=== PATIENT | male | born 1975 | race Caucasian/White ===

== ENCOUNTER 2016-12-28 07:33 | Emergency (ER) | payer OTHER ==
[2016-12-28 07:56] VITALS: BP 155/72; TEMP 96.6; O2SAT 99
--- NOTE | 2016-12-28 08:00 | ED.PDOC ---
History of Present Illness - General Chief Complaint: Eye Problems Stated Complaint: Feels like something is in his L eye Time Seen by Provider: 12/28/16 07:34 Source: patient, RN notes reviewed, Vital Signs reviewed Exam Limitations: no limitations - History of Present Illness Initial Comments: Patient reports he got something in his eye 2 days ago. It is now painful and red and feels like something is in there every time he closes his eye. No photophobia Timing/Duration: gradual Severity: moderate EENT Location: eye (L) Prearrival Treatment: no prearrival treatment Improving Factors: nothing Worsening Factors: other - closing eye Associated Symptoms: denies symptoms Allergies/Adverse Reactions: Allergies NO KNOWN ALLERGY Allergy (Verified 10/01/12 10:34) Review of Systems - Review of Systems Constitutional: States: no symptoms reported EENTM: States: see HPI Respiratory: States: no symptoms reported Cardiology: States: no symptoms reported Musculoskeletal: States: no symptoms reported Skin: States: no symptoms reported Neurological: States: no symptoms reported Past Medical History (General) - Patient Medical History Hx Congestive Heart Failure: No Hx Diabetes: No Family Medical History - Family History Mother Family History: Unknown Physical Exam - Physical Exam General Appearance: Alert, Comfortable, No apparent distress, Well Developed, Well Groomed, Well Hydrated, Well Nourished Eye Exam: right normal, left other - Injected sclera, nothing under eyelid, Corneal abrassion @ ~6:00 Neck: non-tender, full range of motion, supple, normal inspection Neurologic: alert, normal mood/affect, oriented x 3 Skin Exam: normal color, warm/dry Procedures - Eye Procedure Left Alcaine Drops Administered: Yes Antibiotic Oinment/Drps Admin: gentamycin Progress: After anesthesia with Tetracaine. Flurosene dye placed in L eye. Corneal abrasion @~6:00. No foreign body Departure - Departure Clinical Impression: Corneal abrasion Qualifiers: Encounter type: initial encounter Laterality: left Qualifier Code: (S05.02XA) Injury of conjunctiva and corneal abrasion without foreign body, left eye, initial encounter Time of Disposition: 08:02 Disposition: Discharge to Home or Self Care Condition: Good Departure Forms: ED Discharge - Pt. Copy, Patient Portal Self Enrollment Instructions: DI for Corneal Abrasion Diet: resume usual diet Activity: increase activity as tolerated Additional Instructions: Gentamycin 1 drop in L eye 4X/day for 7 days
[2016-12-28] MEDS ORDERED: GENTAMICIN OPTH SOL 0.3% 5ML BOTTLE OPHTH ONE (12:00)
[2016-12-28] MEDS ORDERED: TETRACAINE HCL 0.5% 4 ML BTTL OPHTH ONE (12:00)
== END 2016-12-28 08:06 | disposition home or self-care (01) ==
LOC: ER 07:33
DX: S05.02XA Injury of conjunctiva and corneal abrasion without foreign body, left eye, initial encounter (principal); X58.XXXA Exposure to other specified factors, initial encounter

== ENCOUNTER → 2018-05-26 | Outpatient (CLI) | payer BC | LOC: GMAE 16:53 | PROVIDERS: ATTEND Family Medicine | DX: R06.02 Shortness of breath (principal); J45.30 Mild persistent asthma, uncomplicated ==

== ENCOUNTER 2018-09-08 21:04 | Observation (INO) | payer BC ==
[2018-09-08] MEDS ORDERED: MORPHINE SULFATE INJ 10 MG/ML VIAL ONE (21:10)
[2018-09-08] MEDS ORDERED: ONDANSETRON INJ 4 MG/2 ML VIAL ONE (21:10)
[2018-09-08] MEDS ORDERED: NITROGLYCERIN 0.4 MG 25 EA TAB SL ONE ×2 (21:10→21:17)
[2018-09-08] MEDS ORDERED: ASPIRIN TABLET 325 MG TAB ONE (21:10)
[2018-09-08] MEDS ORDERED: MORPHINE SULFATE INJ 10 MG/ML VIAL IV ONE ×2 (21:17→21:50)
[2018-09-08] MEDS ORDERED: ASPIRIN (ENTERIC COATED) 325 MG TAB PO ONE (21:17)
[2018-09-08] MEDS ORDERED: ONDANSETRON INJ 4 MG/2 ML VIAL IV ONE (21:18)
[2018-09-08] MEDS ORDERED: ALUM & MAG HYDROX-SIMETHICONE 30 ML, LIDOCAINE VISCOUS 2% 15 ML PO ONE ×2 (21:23)
--- NOTE | 2018-09-08 21:30 | ED.PDOC ---
History of Present Illness - General Chief Complaint: Chest Pain/TN Stated Complaint: CP, N/V Time Seen by Provider: 09/08/18 21:15 Source: patient, family Exam Limitations: no limitations - History of Present Illness Initial Comments: ACUTE ONSET OF SEVERE PRESSURE TYPE CHEST PAIN FROM THE EPIGASTRIUM RADIATING TO THE PRECORDIUM, ASSOCIATED WITH NAUSEA AND DIAPHORESIS. HE RATED IT 10/10. THE PAIN COMES IN WAVES HE SAYS IT FEELS IF HE WAS INFLATED WITH AIR. HAS A HX OF CHOLESTEROL. FORMER TOBACCO USER-SMOKELESS. Timing/Duration: 1/2 hour Location: substernal, epigastric Prior Chest Pain/Cardiac Workup: no prior chest pain, no prior cardiac workup Improving Factors: other - FEELS BETTER WHENEVER IS LYING FLAT. Worsening Factors: nothing Nitro Today/Relief: no nitro taken today Aspirin Treatment Today: no aspirin today Associated Symptoms: chest pain, diaphoresis, nausea/vomiting, shortness of breath Allergies/Adverse Reactions: Allergies NO KNOWN ALLERGY Allergy (Verified 09/08/18 21:26) Home Medications: Ambulatory Orders NK 09/08/18 Review of Systems - Review of Systems Constitutional: States: malaise EENTM: States: no symptoms reported Respiratory: States: short of breath Cardiology: States: chest pain Gastrointestinal/Abdominal: States: abdominal pain, nausea, vomiting Genitourinary: States: no symptoms reported Musculoskeletal: States: no symptoms reported Skin: States: no symptoms reported Neurological: States: no symptoms reported Endocrine: States: no symptoms reported Hematologic/Lymphatic: States: no symptoms reported Past Medical History (General) - Patient Medical History Hx Seizures: No Hx Stroke: No Hx Dementia: No Hx Asthma: No Hx of COPD: No Hx Cardiac Disorders: No Hx Congestive Heart Failure: No Hx Pacemaker: No Hx Hypertension: No Hx Thyroid Disease: No Hx Diabetes: No Hx Gastroesophageal Reflux: No Hx Renal Disease: No Hx Cancer: No Hx of HIV: No Hx Hepatitis C: No Hx MRSA: No - Vaccination History Hx Tetanus, Diphtheria Vaccination: No Hx Influenza Vaccination: Yes Family Medical History - Family History Mother Family History: Unknown Physical Exam - Physical Exam General Appearance: Obvious distress, Well Developed, Well Groomed, Well Hydrated, Well Nourished Eyes, Ears, Nose, Throat Exam: PERRL/EOMI Neck: non-tender, full range of motion, supple Respiratory: lungs clear, normal breath sounds, no respiratory distress, no accessory muscle use Cardiovascular/Chest: normal peripheral pulses, regular rate, rhythm, no edema, no gallop, no JVD, no murmur Peripheral Pulses: radial,right: 2+, radial,left: 2+ Gastrointestinal/Abdominal: normal bowel sounds, soft, no organomegaly, tenderness - EPIGASTRIC TENDERNESS Rectal Exam: deferred Extremity: normal range of motion Neurologic: no motor/sensory deficits, normal mood/affect, oriented x 3 Skin Exam: normal color, rash - CLAMMY Lymphatic: no adenopathy Progress - Progress Progress: 09/08/18 23:13 09/08/18 21:30 EKG STAT 09/08/18 23:11 TROPONIN-I Stat Laboratory Results WBC 8.0 K/mm3 (4.8-10.8) 09/08/18 21:19 RBC 5.24 M/mm3 (4.70-6.10) 09/08/18 21:19 Hgb 15.1 gm/dL (14.0-18.0) 09/08/18 21:19 Hct 45.5 % (42.0-52.0) 09/08/18 21:19 MCV 86.9 fl (80.0-94.0) 09/08/18 21: MCH 28.7 pg (27.0-31.0) 09/08/18 21: MCHC 33.1 g/dL (33.0-37.0) 09/08/18 21:19 RDW 13.7 % (11.5-14.5) 09/08/18 21: Plt Count 243 K/mm3 (130-400) 09/08/18 21:19 MPV 9.0 fl (7.40-10.4) 09/08/18 21:19 Absolute Neuts (auto) 4.90 K/uL (1.8-6.8) 09/08/18 21: Absolute Lymphs (auto) 2.30 K/uL (1.0-3.4) 09/08/18 21:19 Absolute Monos (auto) 0.60 K/uL (0.2-0.8) 09/08/18 21:19 Absolute Eos (auto) 0.20 K/uL (0.0-0.4) 09/08/18 21:19 Absolute Basos (auto) 0.00 K/uL (0.0-0.1) 09/08/18 21:19 Neutrophils % 60.8 % (42.0-78.0) 09/08/18 21:19 Lymphocytes % 28.9 % (20.0-50.0) 09/08/18 21:19 Monocytes % 7.5 % (2.0-9.0) 09/08/18 21:19 Eosinophils % 2.4 % (1.0-5.0) 09/08/18 21:19 Basophils % 0.4 % (0.0-2.0) 09/08/18 21:19 PT 9.7 SECONDS (9.0-10.9) 09/08/18 21:19 INR 0.97 (0.9-1.15) 09/08/18 21:19 PTT (SP) 23.2 SECONDS (21.8-31.6) 09/08/18 21:19 D-Dimer, Quantitative 0.28 mg/L FEU (0-0.49) 09/08/18 21:19 Sodium 140 mmol/L (135-145) 09/08/18 21:19 Potassium 3.6 mmol/L (3.6-5.0) 09/08/18 21:19 Chloride 104 mmol/L (101-111) 09/08/18 21:19 Carbon Dioxide 28 mmol/L (21-31) 09/08/18 21:19 Anion Gap 11.6 (12-18) L 09/08/18 21:19 BUN 28 mg/dL (7-18) H 09/08/18 21:19 Creatinine 1.31 mg/dL (0.6-1.3) H 09/08/18 21:19 BUN/Creatinine Ratio 21.4 (10-20) H 09/08/18 21:19 Random Glucose 108 mg/dL (70-105) H 09/08/18 21:19 Serum Osmolality 285.4 mOsm/L (275-295) 09/08/18 21:19 Calcium 9.7 mg/dL (8.4-10.2) 09/08/18 21:19 Total Bilirubin 0.4 mg/dL (0.2-1.0) 09/08/18 21:19 AST 59 IU/L (10-42) H 09/08/18 21:19 ALT 39 IU/L (10-60) 09/08/18 21:19 Alkaline Phosphatase 84 IU/L (42-121) 09/08/18 21:19 Troponin I < 0.02 ng/mL (0.01-0.05) 09/08/18 21:19 Serum Total Protein 7.4 gm/dL (6.4-8.2) 09/08/18 21:19 Albumin 4.3 g/dl (3.2-5.5) 09/08/18 21:19 Globulin 3.1 gm/dL (2.3-3.5) 09/08/18 21:19 Albumin/Globulin Ratio 1.4 (1.1-1.9) 09/08/18 21: Lipase 34 U/L (22-51) 09/08/18 21:25 09/08/18 23:13 Vital Signs (72 hours) 09/08/18 09/08/18 09/08/18 21:04 21:05 21:30 Temperature 97.9 F Pulse Rate [ 66 66 61 monitor] Respiratory 22 22 Rate Blood Pressure 136/82 133/83 [Right Arm] O2 Sat by Pulse 96 96 Oximetry 09/08/18 09/08/18 09/08/18 21:45 22:00 22:15 Temperature Pulse Rate [ 74 62 90 monitor] Respiratory 22 22 22 Rate Blood Pressure 136/86 112/80 [Right Arm] O2 Sat by Pulse 99 95 96 Oximetry 09/08/18 22:30 Temperature Pulse Rate [ 78 monitor] Respiratory 20 Rate Blood Pressure 131/81 [Right Arm] O2 Sat by Pulse 98 Oximetry 09/08/18 23:15 FEELS MUCH BETTER, PAIN AT A 2-3. CXR NEGATIVE FOR ACUTE PROCESS. CT ANGIO OF THE CHEST IS NEGATIVE FOR DISSECTION, PERICARDIAL EFFUSION OR PULMONARY EMBOLISM. EKG X 2 ARE NEGATIVE, WILL REPEAT 2ND TROP I. IF NEGATIVE PLAN TO KEEP HIM OVERNIGHT. WILL START PROTONIX IV. 09/09/18 00:09 CASE DISCUSSED WITH JOSH RAIN-ACCEPTS ADMISSION - Results/Orders Results/Orders: EKG: HR OF 68, OH INTERVAL OF 178, QRS OF 86, QTC OF 387, AXIS OF 54 DEGREES. IMPRESSION: SINUS RHYTHM, NO ACAUTE INJURY PATTERN, THERE ARE TRACES TO COMPARE WITH. EKG NO.2: HR OF 61, OH INTERVAL OF 168, QRS OF 94, QTC OF 376, AXES OF 57 DEGREES, IMPRESSION SINUS RHYTHM, NORMAL EKG. THIS TRACING IS COMPARED TO ONE DONE AT 2100 HRS. NO CHANGES NOTED Departure - Departure Clinical Impression: Epigastric abdominal pain Chest pain Qualifiers: Chest pain type: unspecified Qualified Code(s): R07.9 - Chest pain, unspecified Time of Disposition: 00:08 Disposition: Admit Patient Departure Forms: ED Discharge - Pt. Copy, Patient Portal Self Enrollment Instructions: DI for Chest Pain Referrals: BIA GUAJARDO MD [Primary Care Provider] - 1-2 Weeks Home Medications: Ambulatory Orders NK 09/08/18 Decision To Admit - Decistion To Admit Decision to Admit Date: 09/09/18 Decision to Admit Time: 00:08
--- NOTE | 2018-09-08 21:31 | RAD ---
EXAM DESCRIPTION: Chest,1 View CLINICAL HISTORY: 43 years Male chest pain COMPARISON: None. FINDINGS: The cardiomediastinal silhouette appears unremarkable. No consolidating infiltrates or pleural effusions. No pneumothorax. IMPRESSION: No acute abnormality is identified. Electronically signed by: Karuna Joseph MD 09/08/2018 9:30 PM ASSISTANT SURVEYOR
[2018-09-08] MEDS ORDERED: LIDOCAINE HCL 2% (MOUTH-THROAT) 15 ML UD ONE (21:36)
[2018-09-08] MEDS ORDERED: ALUM & MAG HYDROX-SIMETHICONE 30 ML UD ONE (21:36)
--- NOTE | 2018-09-08 22:38 | CT ---
PROCEDURE: CTA Chest CLINICAL HISTORY: 43 years Male SEVERE CHEST PAIN COMPARISON: None. TECHNIQUE: Contiguous axial images were obtained through the chest during the infusion of IV contrast. Reformatted images obtained. MIP reformatted images obtained. This exam was performed according to our department optimization program which includes automated exposure control, adjustment of the mA and/or kv according to patient size and/or use of iterative reconstruction technique. FINDINGS: No evidence aortic dissection or rupture. No pericardial or pleural effusion. No evidence of pulmonary embolus. Small amount of patchy groundglass density bilaterally which is nonspecific finding. No evidence of airspace disease. IMPRESSION:No evidence of pulmonary embolus Patchy groundglass densities bilaterally which are nonspecific No evidence of alveolar consolidation or pleural effusion Electronically signed by: Karuna Joseph MD 09/08/2018 10:37 PM BIOPHYSICS TEACHER
[2018-09-08] MEDS ORDERED: PANTOPRAZOLE SODIUM IV 40 MG VIAL ONE (23:35)
--- NOTE | 2018-09-09 00:50 | HP ---
SUPERVISING PHYSICIAN: Elmer Garcia M.D. CHIEF COMPLAINT: Chest pain and epigastric discomfort. HISTORY OF PRESENT ILLNESS: Mr. Waller is a 43 year-old male patient that presented to the [facility] early last night with complaints of severe chest pain radiating from his epigastrium into the pericardium that he associated with some diaphoresis and nausea. He initially rated his pain on a scale of 10/10 with the pain coming in waves and some bloated feeling. He notes that he had been having some similar type symptoms but not severe over the last week or two which he associated with some indigestion at times and last night he had supper and 2 hours later had the onset of symptoms. The pain was improved with his lying down. His initial workup included rule out for acute myocardial infarction with troponins times 2 being less than 0.02 and his EKG showing normal sinus rhythm with no ST or T wave changes. His laboratory studies showed a normal white count with now a left shift. Coagulation studies showed all to be normal including D-dimer. Chemistries showed an elevated creatinine at 1.31 with AST showing elevation at 59. Lipase was normal at 34. Given the severity of symptoms and initial workup showing negative for any cardiac event, there was concern that he may be having a thoracic aneurysm dissecting and he then had a CT of the chest that showed no evidence of pulmonary embolus and no evidence of consolidations or pleural effusions. No aortic dissection or rupture noted. The patient now is going to be admitted after he got pain control with some Toradol and morphine. It was felt that he was likely having pain contributing to some cholelithiasis, so the plan is to place the patient in observation and obtain an ultrasound of the gallbladder in the morning, and consultation with Dr. Romero, general surgeon. The patient was placed in observation in stable condition and continued on cardiac monitoring for further chest pain rule out. PAST MEDICAL HISTORY: No significant history. PAST SURGICAL HISTORY: No surgeries listed. CURRENT MEDICATIONS: No prescribed medications. No herbal medications or supplements listed. ALLERGIES: NO KNOWN DRUG ALLERGIES. FAMILY HISTORY: Unremarkable. SOCIAL HISTORY: The patient lives in [place]. He is . 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 He does not smoke, drink or use alcohol or illicit drugs. REVIEW OF SYSTEMS: CONSTITUTIONAL: Negative for fever or chills, unintentional weight loss. HEENT: Negative for any headaches, sore throat, nasal congestion, ear aches. CARDIOVASCULAR: Positive for shortness of breath associated with the pain with no reported wheezing or coughing. CARDIOVASCULAR: Negative for palpitations, syncopal episodes. Positive for chest pains as noted in History of Present Illness, more so in the epigastric region. GASTROINTESTINAL: Positive for abdominal pain, nausea or vomiting associated with pain in the epigastrium. No constipation, diarrhea or other bowel habit changes. GENITOURINARY: Negative for any dysuria, hematuria or polyuria. MUSCULOSKELETAL: Negative for any arthralgias, arthralgias or arthritic issues. NEUROLOGIC: Negative for seizures, ataxia, headaches, syncopal episodes. HEMATOLOGIC: Negative for any unexplained bleeding, easy bruising. PHYSICAL EXAMINATION: VITAL SIGNS: Temperature 97.9, pulse 66, blood pressure 136/82, respirations 22, satting 96% on room air. Admission weight 88.8 kg. GENERAL: On admission to the Medical/Surgical floor, examination shows the patient to be without any acute distress resting comfortably after having pain medicine. He is alert. HEENT: Tympanic membranes are clear bilaterally. Oropharynx was pink and moist without any lesions. NECK: Supple, non-tender. Full range of motion. No jugular venous distention. CHEST: Lungs are clear to auscultation without any rhonchi, wheezing or rales. ABDOMEN: Some point tenderness over the right upper quadrant and epigastrium. No rebound tenderness. Bowel sounds are positive. EXTREMITIES: Without any clubbing, cyanosis or edema. NEUROLOGIC: He is alert and oriented times three. LABORATORY: CBC shows to be within normal limits with a white count at 8,000. Coagulation studies showed normal PT, PTT and D-dimer. Chemistries showed normal electrolytes with potassium 3.6, BUN was elevated at 28, creatinine 1.31, calcium 9.7. Liver functions showed normal total bilirubin. AST was elevated at 59, ALT normal at 39. Lipase and amylase were both within normal limits. RADIOLOGY: Initially he had a chest x-ray, single view chest, per radiology interpretation showed unremarkable cardiomediastinal silhouette. No consolidations, infiltrates or pleural effusions. No pneumothorax. He also had a CT of the chest thorax to rule out PE and dissecting aorta with radiology showing no evidence of aortic dissection or rupture or pericardial pleural effusions. No evidence of pulmonary embolus. There was mention of small amount of patchy ground glass densities bilaterally which was a nonspecific finding. No evidence of airspace disease. Gallbladder ultrasound is pending. EKG shows normal sinus rhythm without any ST changes. No T wave inversions to indicate any pattern of injury. ASSESSMENT: 1. Chest pain rule out possibly related to cholelithiasis, awaiting ultrasound and showing negative for current workup at admission. 2. Right upper quadrant and epigastrium pain probably due to cholelithiasis versus cholecystitis, awaiting ultrasound of the gallbladder. 3. Renal insufficiency likely prerenal azotemia due to some nausea and vomiting resulting in some moderate dehydration. 4. Moderate dehydration secondary to nausea and vomiting and acute pain. PLAN: The patient is going to be placed in observation for further workup to rule out any acute myocardial infarction. Will get a consultation with Dr. Romero in the morning and an ultrasound. Will await those findings and anticipate length of stay to be 1 to 2 days. While awaiting those findings, will continue cardiac workup with continued troponin in the morning and continue his cardiac monitoring and EKGs. Will recommend p.o. with anticipation of doing an ultrasound in the morning. Will start him on some IV fluids for dehydration and renal insufficiency. He will be on DVT prophylaxis as per protocol once he is seen by Dr. Romero if needing surgery. Will continue with Dr. Romero's request. At this time will hold off on any antibiotics as there are no acute signs of infection, awaiting further evaluation and consultation with Dr. Romero. Until the patient can be transitioned clinically to outpatient management, will continue to monitor and treat as needed. #[id number] [facility]
[2018-09-09] MEDS ORDERED: ACETAMINOPHEN 325 MG TAB PO PRN (01:40)
[2018-09-09] MEDS ORDERED: NITROGLYCERIN 0.4 MG 25 EA TAB SL PRN (01:40)
[2018-09-09] MEDS ORDERED: SODIUM CHLORIDE 0.9% (FLUSH) 10 ML SYG IV PRN (01:40)
[2018-09-09] MEDS ORDERED: IV SET AND CAP CHANGE INJ INJ SCH (02:00)
[2018-09-09] MEDS: KCL 20MEQ/0.45% NS 1,000 ML IVS PRN ×3 (03:08→20:21)
[2018-09-09] MEDS ORDERED: PANTOPRAZOLE SODIUM IV 40 MG VIAL IV SCH (06:30)
--- NOTE | 2018-09-09 09:42 | US ---
EXAM DESCRIPTION: Gall Bladder: ULTRASOUND. CLINICAL HISTORY: epigastric pain COMPARISON: None. TECHNIQUE: Transabdominal scanning: Langley-scale and Doppler modes. FINDINGS: Gallbladder: Slightly contracted; no intraluminal stones or sludge. No fluid around the gallbladder. Wall is thickened with edema, 4.5 mm tender with transducer pressure Common bile duct: caliber 7.5 mm dilated distally. Liver: normal echogenicity; contour liver capsule smooth where seen. No fluid around the liver. Intrahepatic biliary ducts normal caliber. Doppler hepatopedal flow portal vein.. Long axis right lobe 14.5 cm Pancreas: Not well seen. Duct not seen. Aorta: Normal caliber from the proximal segment to the distal bifurcation. Right kidney: 10.6 cm long axis. Normal cortical thickness and echogenicity. No hydronephrosis or perinephric fluid. IMPRESSION: 1. Acute cholecystitis, but no definite stones or sludge seen. Wall thickening with edema. Tender with transducer pressure. No fluid around the gallbladder. 2. Normal ultrasound of the liver. Pancreas not well seen. Normal caliber of the abdominal aorta and proximal IVC. Electronically signed by: Neymar Aguilar MD 09/09/2018 9:41 AM [facility]
[2018-09-09] MEDS ORDERED: IBUPROFEN 200 MG TAB PO PRN (09:54)
[2018-09-09] MEDS: SODIUM CHLORIDE 0.9% (FLUSH) 10 ML SYG IV SCH ×2 (10:16→22:32)
--- NOTE | 2018-09-09 10:49 | CONS ---
DATE OF CONSULTATION: 09/09/18 REFERRING PHYSICIAN: Hospitalist service HISTORY OF PRESENT ILLNESS: The patient is a 43-year-old male who was admitted through the Emergency Room last night after presenting with chest pain with pressure, diaphoresis and nausea. He has had a cardiac workup and has not bumped any of his cardiac enzymes and has a normal EKG. He feels better today, but still complains of abdominal pain in the right upper quadrant. PAST MEDICAL HISTORY: Insignificant for surgery, cardiac symptoms or problems with his breathing. CURRENT MEDICATIONS: He takes no medications on a routine basis. FAMILY HISTORY: Noncontributory. 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 He drinks rarely. REVIEW OF SYSTEMS: Positive for the chest pain, which has resolved. No shortness of breath currently. He does state that he has probably had some issues with fatty foods over the last month or so, but did not correlate that with the symptoms last night. He denies problems with his upper respiratory tract or voiding. PHYSICAL EXAMINATION: GENERAL: The patient is awake, alert, cooperative. VITAL SIGNS: The patient is currently afebrile, normotensive. HEENT: Sclerae nonicteric. Mucous membranes moist. CHEST: Equal breath sounds bilaterally. HEART: Regular rhythm. ABDOMEN: Soft. He is tender in the right upper quadrant without mass or guarding. Bowel sounds are active, but decreased. RECTAL: Deferred. EXTREMITIES: Without cyanosis, clubbing or edema. LABORATORY: White count 8,000, hemoglobin 15, platelet count 243,000. Differential is normal with 60% neutrophils. Potassium 3.6 on admission and is 4.3 this morning. Creatinine is down from 1.31 to 1.16. Total bilirubin has remained 0.4. AST and ALT have gone minimally elevated to AST 166 and ALT 172. Alkaline phosphatase remains within normal limits. As noted, the troponin was within normal limits. Amylase and lipase within normal limits. Ultrasound of the gallbladder revealed thickened wall with a positive ultrasound Ponce's sign. The common bile duct is within normal limits. There are no obvious stones within the gallbladder. ASSESSMENT: 1. Acute cholecystitis. 2. Probably cholelithiasis. 3. No evidence of choledocholithiasis or pancreatitis. PLAN: The risks, benefits and alternatives to cholecystectomy were discussed with the patient including pancreatitis, injury to the bile duct or liver, injury to other organs and bleeding, infection or hernia from the trocar sites. The patient and his agree. Their questions were answered. We will proceed with cholecystectomy tomorrow morning. #[id number] [facility]
[2018-09-09] MEDS ORDERED: levoFLOXacin 500MG IV 100 ML IVPB ONE (11:06)
[2018-09-09] MEDS: levoFLOXacin 500MG IV 500 MG in PREMIX BAG 1 BAG IVPB SCH (11:11)
[2018-09-09] MEDS: MORPHINE SULFATE INJ 10 MG/ML VIAL IV PRN ×3 (16:19→23:20)
[2018-09-09] MEDS ORDERED: ONDANSETRON INJ 4 MG/2 ML VIAL ONE (20:26)
[2018-09-09] MEDS: ONDANSETRON INJ 4 MG/2 ML VIAL IV PRN (20:36)
[2018-09-10] MEDS ORDERED: HEPARIN SODIUM (PORCINE) 10,000 UNITS/ML VIAL ONE (06:47)
[2018-09-10] MEDS ORDERED: PROPOFOL 200 MG/20 ML VIAL IV ONE (07:00)
[2018-09-10] MEDS ORDERED: METOCLOPRAMIDE HCL INJ 10 MG/2 ML VIAL ONE (07:00)
[2018-09-10] MEDS ORDERED: raNITIdine HCL INJ 25 MG/ML VIAL ONE (07:00)
[2018-09-10] MEDS ORDERED: LIDOCAINE 1% 10 ML VIAL INJ ONE (07:00)
[2018-09-10] MEDS ORDERED: DEXAMETHASONE INJ 10 MG/ML VIAL ONE (07:00)
[2018-09-10] MEDS ORDERED: MIDAZOLAM INJ 2 MG/2 ML VIAL ONE (07:49)
[2018-09-10] MEDS ORDERED: ROCURONIUM BROMIDE 10 MG/ML VIAL ONE (07:49)
[2018-09-10] MEDS ORDERED: ACETAMINOPHEN IV 1000MG 100 ML ONE (07:49)
[2018-09-10] MEDS ORDERED: fentaNYL CITRATE INJ 50 MCG/ML AMP ONE (07:49)
[2018-09-10] MEDS ORDERED: levoFLOXacin 500MG IV 100 ML IVPB ONE (08:09)
[2018-09-10] MEDS ORDERED: ELECTROLYTE-A 1,000 ML IVS ONE (08:16)
[2018-09-10] MEDS: levoFLOXacin 500MG IV 500 MG in PREMIX BAG 1 BAG IVPB SCH (08:33)
[2018-09-10] MEDS ORDERED: KETAMINE HCL 100 MG/ML VIAL ONE (08:36)
[2018-09-10] MEDS: SODIUM CHLORIDE 0.9% (FLUSH) 10 ML SYG IV SCH (08:46)
[2018-09-10] MEDS ORDERED: ASPIRIN TABLET 325 MG TAB PO SCH (09:00)
[2018-09-10] MEDS: BUPIVACAINE 0.25% W/EPI 50 ML VIAL INJ ONE ×2 (09:11→10:15)
[2018-09-10] MEDS ORDERED: HYDROmorphone HCL INJ 2 MG/ML VIAL ONE (09:20)
[2018-09-10] MEDS ORDERED: SUGAMMADEX SODIUM 200 MG/2 ML VIAL IV ONE (10:17)
[2018-09-10] MEDS ORDERED: MORPHINE SULFATE INJ 10 MG/ML VIAL IV PRN (10:32)
[2018-09-10] MEDS ORDERED: LACTATED RINGERS 1,000 ML IVS PRN (10:32)
[2018-09-10] MEDS ORDERED: ONDANSETRON INJ 4 MG/2 ML VIAL IV PRN (10:32)
[2018-09-10] MEDS ORDERED: HYDROcodone 5MG/APAP 325MG 1 EA TAB PO PRN (10:32)
--- NOTE | 2018-09-10 10:56 | OP ---
DATE OF PROCEDURE: 09/10/18 PREOPERATIVE DIAGNOSIS: 1. Acute cholecystitis. POSTOPERATIVE DIAGNOSIS: 1. Acute cholecystitis. 2. Cholesterolosis. PROCEDURE: 1. Laparoscopic cholecystectomy with intraoperative cholangiography. SURGEON: Ralph Romero MD. WRECKING CRANE ENGINE OPERATOR: None. ANESTHESIA: Local infiltration of 0.25% Marcaine with epinephrine and general endotracheal anesthesia. INDICATION: The patient is a 43-year-old male who was admitted two nights ago with chest pain. He ruled out and ultrasound was ordered yesterday which revealed gallbladder with thickened jacobs, but no stones. He had mildly elevated AST and ALT. The patient was brought to the Surgical Suite today for cholecystectomy after the risks, benefits and alternatives to the procedure were discussed with the patient and his , who is a surgical nurse. FINDINGS: The gallbladder was tense with a thickened wall. Intraoperative cholangiography revealed free flow into the duodenum with no obvious filling defects or strictures noted. The open gallbladder revealed several small cholesterol polyps and other flecks of cholesterol in the wall consistent with cholesterolosis. No other obvious pathology was identified in the abdomen. DESCRIPTION OF PROCEDURE: After adequate general endotracheal anesthesia was obtained, the patient was given a second dose of Levaquin which he had been started on yesterday. He was prepped and draped in the usual sterile manner. Surgical time-out was taken. The infraumbilical area was infiltrated with local anesthesia. A curvilinear incision was fashioned and carried down through the subcutaneous tissue to the midline fascia. Traction sutures were placed on either side of the midline. A small incision was made in the midline fascia and the peritoneum was divided bluntly. The port was introduced into the abdominal cavity and fixed in place with the 20 mL balloon. CO2 was then insufflated until a pressure of 12 mmHg was reached and the abdomen was tympanitic in all four quadrants. When this was done, the laparoscope was introduced. The abdomen was inspected with the previously noted findings. The patient was then placed in reverse Trendelenburg position, turned to the left side. The upper abdominal ports were placed under direct vision. The gallbladder was grasped, retracted anteriorly and laterally. The neck of the gallbladder was retracted laterally. The triangle of Calot was then explored with the cystic duct and cystic artery identified and isolated. The cystic duct was hemoclipped once proximally. The cystic artery was hemoclipped twice proximally and once distally. A small incision was made in the cystic duct. Some debris consistent with stones and dark bile was obtained. The cholangiogram catheter was introduced through a separate stab wound in the right upper quadrant, introduced into the cystic duct and with some difficulty due to a defective clipper, we eventually got it clipped into the cystic duct. Cholangiograms were then taken which revealed free flow into the duodenum with no filling defects or strictures noted, but a generous biliary tree. When this was done, the cystic duct catheter was removed. The cystic duct was hemoclipped three times distally and divided between the hemoclips. The cystic artery was divided between the clips. The gallbladder was then dissected free from the gallbladder bed of the liver using electrocautery with some difficulty due to its tenseness and size. The gallbladder was placed in an EndoCatch bag and removed from the infraumbilical port site in the usual manner under direct vision. When this was done, the port was replaced and the subhepatic space was inspected. There was adequate hemostasis in the gallbladder bed of the liver and the kartik hepatis revealed no bleeding or bile leak. At this point, the subhepatic space and subphrenic space were irrigated copiously with saline. The effluent was noted to be clear. The upper abdominal ports were removed under direct vision. The medial port had some bleeding and this was controlled with cautery. When this was done, the CO2, the laparoscope and the infraumbilical port were removed. The infraumbilical port site fascia was approximated with a single [id number] suture of 0 Vicryl. Subcutaneous tissue was irrigated with saline. Skin edges were approximated with 4-0 Vicryl subcuticular sutures, benzoin and Steri- Strips. Sterile dressings were applied. The patient was awakened and taken to the Recovery Room in good and stable condition. Estimated blood loss was less than 75 mL. All sponge, needle and instrument counts were correct. #[id number] [facility]
[2018-09-10 12:18] VITALS: TEMP 98.2
[2018-09-10 12:20] VITALS: BP 132/85
[2018-09-10] MEDS: ONDANSETRON INJ 4 MG/2 ML VIAL IV PRN (12:37)
[2018-09-10] MEDS ORDERED: ONDANSETRON ODT 8 MG TAB SL PRN (15:07)
[2018-09-10] MEDS ORDERED: ONDANSETRON 4 MG TAB ONE (15:09)
[2018-09-10 18:28] VITALS: O2SAT 90
--- NOTE | 2018-09-11 17:34 | DS ---
SUPERVISING PHYSICIAN: Elmer Garcia M.D. DISCHARGE DIAGNOSIS: 1. Acute cholecystitis status post cholecystectomy per Dr. Ralph Romero, general surgeon. Postoperative day #0. 2. Chest pain on admission with a negative cardiac workup. 3. Right upper quadrant and epigastric abdominal pain on admission most likely secondary to acute cholecystitis and probable cholelithiasis. 4. Renal insufficiency likely prerenal azotemia due to some nausea and vomiting resulting in some moderate dehydration that has improved. 5. Dehydration secondary to nausea and vomiting and acute pain. HISTORY OF PRESENT ILLNESS: This is a 43 year-old male patient who presented to the Emergency Room on the day of admission with complaints of severe chest pain radiating from his epigastrium into the pericardium that he associated with some diaphoresis and nausea. He rated his pain at 10/10 with the pain coming in waves with some bloated feeling. He had had some similar type symptoms previously but not as severe over the last two weeks. The pain improved with lying down. His initial workup ruled out any cardiac issues with his EKG still in normal sinus rhythm and his cardiac enzymes negative. His laboratory studies showed a normal white count but there was a left shift. Chemistries showed an elevated creatinine at 1.31 and AST was 59. Lipase was normal. Given the severity of the symptoms and his initial workup was negative for any cardiac event, there was concern that he may be having a thoracic aneurysm dissection and had a CT of the chest that showed no evidence of pulmonary emboli and no evidence of consolidation or pleural effusion. No aortic dissection or rupture noted. The patient was admitted for observation to obtain an ultrasound of the gallbladder and Dr. Romero was consulted. He was placed in observation and continued on cardiac monitoring. HOSPITAL COURSE: He was given fluids and a gallbladder ultrasound was ordered. He was also continued on the chest pain guidelines. His EKG showed normal sinus rhythm and cardiac enzymes were negative. The gallbladder ultrasound was obtained and showed acute cholecystitis with no definite stones or sludge seen. Wall thickening with edema. Tender with transducer pressure. No fluid around the gallbladder. Normal ultrasound of the liver. Pancreas not well seen. Normal caliber of the abdominal aorta and the proximal IVC. Dr. Romero spoke with the patient and they decided it would be best if he would have a cholecystectomy and today he went to surgery. He had no problems intraoperatively. Postoperatively he had some mild nausea but it was relieved with Zofran. He also had some pain that was relieved with Hydrocodone. His diet was advanced. He tolerated it well and at this point he will be discharged home in stable condition. DISCHARGE PLAN: The patient will be discharged home in stable condition. He is to advance his diet as tolerated from a liquid diet to a low fat diet, to increase his activity as tolerated. Postoperative instructions were given per Dr. Romero and the recovery room personnel. He can take a shower tomorrow. He is to call Dr. Romero's office for followup appointment. He also can followup with Dr. Garcia. He was given a Hydrocodone prescription per Dr. Romero as well as Zofran orally disintegrating tablets for nausea. He is to call Dr. Romero's office or return to the hospital for any problems or complications. DISCHARGE MEDICATIONS: 1. Zofran. 2. Hydrocodone. #[id number] [facility]
== END 2018-09-10 16:30 | disposition home or self-care (01) ==
LOC: ER 21:04 → MS 09-09 00:49
PROVIDERS: ADMIT Nurse Practitioner Family; ATTEND Nurse Practitioner Acute Care
DX: K81.2 Acute cholecystitis with chronic cholecystitis (principal); R07.89 Other chest pain; N28.9 Disorder of kidney and ureter, unspecified; E86.0 Dehydration; Z87.891 Personal history of nicotine dependence
CPT/HCPCS: 47563; 00790; 96361; 96374; 96375 ×2; 96376 ×3; J3010; J1644; J1170; J1956 ×2; J2765; J2270 ×4; J2405 ×3; J3490; J1100; J2250; J2780; J3480 ×4; J7120; 85379; 80053 ×3; 80061; 36415 ×8; 82150; 85025; 83690 ×2; 85730; 85610; 84484 ×3; 36416 ×2; 71045; 76000; 71275; 76705; 94760 ×2; 99285; 93005 ×2; G0378

== ENCOUNTER → 2020-03-21 | Outpatient (CLI) | payer BC ==
--- NOTE | 2020-03-21 12:58 | CT ---
EXAM DESCRIPTION: Abdoment/Pelvis w/o Contrast CLINICAL HISTORY: 44 years Male, RIGHT FLANK PAIN TECHNIQUE: This exam was performed according to our departmental dose-optimization program, which includes automated exposure control, adjustment of the mA and/or kV according to patient size and/or use of iterative reconstruction technique. COMPARISON: None at time of initial interpretation. FINDINGS: Evaluation limited by lack of intravenous contrast. Visualized lung bases are grossly unremarkable. The contours of the liver, spleen, pancreas and adrenal glands are unremarkable. Cholecystectomy. Punctate nonobstructing bilateral nephrolithiasis. No hydronephrosis. No obstructing ureteral stone. Unremarkable bladder. No evidence of bowel obstruction or focal inflammatory change. No findings to suggest appendicitis. Normal appendix. No adenopathy. No focal fluid collection. No free air. Normal caliber abdominal aorta. No acute or suspicious osseous abnormality. IMPRESSION: No evidence of acute process in the abdomen or pelvis. Electronically signed by: Silvestre Bergman MD 03/21/2020 12:57 PM CDT
== END ==
LOC: CT 09:06
PROVIDERS: ATTEND Family Medicine
DX: R10.84 Generalized abdominal pain (principal)

== ENCOUNTER → 2020-08-06 | Outpatient (CLI) | payer BC | LOC: YCFC.O 12:06 | PROVIDERS: ATTEND Nurse Practitioner | DX: Z20.828 Contact with and (suspected) exposure to other viral communicable diseases (principal) ==

== ENCOUNTER → 2020-11-22 | Outpatient (CLI) | payer BC ==
--- NOTE | 2020-11-22 11:41 | CT ---
EXAM DESCRIPTION: CT Abdomen/Pelvis w/o Contrast CLINICAL HISTORY: Gross hematuria COMPARISON: 03/21/2020 TECHNIQUE: CT of the abdomen and pelvis was performed without contrast. Multiple axial images and multiplanar reconstructions were generated. This exam was performed according to our departmental dose-optimization program, which includes automated exposure control, adjustment of the mA and/or kV according to patient size and/or use of iterative reconstruction technique. FINDINGS: Lung bases: The visualized lung bases are clear. Solid organs: Nonobstructing 1 to 2 mm calculus in the upper pole of the right kidney. No hydronephrosis or hydroureter. Cholecystectomy clips. The liver, spleen, pancreas, left kidney, and adrenal glands are unremarkable on this noncontrast exam. Gastrointestinal: Rare colonic diverticulosis without CT evidence for diverticulitis. The stomach and small intestine are unremarkable. The appendix is normal. No free fluid or free air. Vascular: Normal caliber of the abdominal aorta on this noncontrast exam. Lymph nodes: No pathologically enlarged lymph nodes are present by CT size criteria. Musculoskeletal and soft tissues: No destructive osseous lesions are present. Urinary bladder and pelvic organs: The urinary bladder is normal. The prostate is normal in size. IMPRESSION: 1. Nonobstructing right nephrolithiasis. 2. Rare colonic diverticulosis. 3. Other findings as above. Electronically signed by: Octaviano Campuzano MD 11/22/2020 11:39 AM [facility]
== END ==
LOC: CT 10:58
PROVIDERS: ATTEND Family Medicine
DX: N20.0 Calculus of kidney (principal); K57.30 Diverticulosis of large intestine without perforation or abscess without bleeding; R31.0 Gross hematuria

== ENCOUNTER 2020-11-23 11:00 | Day surgery (SDC) | payer BC ==
[~2020-11-23 11:00] MED LIST: LACTATED RINGERS 1,000 ML ONE
[2020-11-23] MEDS ORDERED: PROPOFOL 200 MG/20 ML VIAL IV ONE (11:01)
[2020-11-23] MEDS ORDERED: DEXAMETHASONE INJ 10 MG/ML VIAL IV ONE (11:01)
[2020-11-23] MEDS ORDERED: MAGNESIUM SULFATE INJ 1 GM/2 ML VIAL IVPB ONE (11:01)
[2020-11-23] MEDS ORDERED: ceFAZolin SODIUM 1 GM VIAL IVPB ONE (11:01)
[2020-11-23] MEDS ORDERED: LIDOCAINE 1% 10 ML VIAL INJ ONE (11:01)
[2020-11-23] MEDS ORDERED: KETOROLAC TROMETHAMINE INJ 30 MG/ML VIAL IV ONE (11:01)
[2020-11-23] MEDS ORDERED: MIDAZOLAM INJ 2 MG/2 ML VIAL ONE (11:26)
[2020-11-23] MEDS ORDERED: DEXMEDETOMIDINE HCL 200 MCG/2 ML INJ IV ONE (11:26)
[2020-11-23] MEDS ORDERED: KETAMINE HCL 100 MG/ML VIAL ONE (11:26)
[2020-11-23] MEDS ORDERED: fentaNYL CITRATE INJ 50 MCG/ML 2 ML AMP ONE (11:26)
[2020-11-23] MEDS ORDERED: BUPIVACAINE 0.25% W/EPI 50 ML VIAL INJ ONE (11:34)
[2020-11-23] MEDS: LACTATED RINGERS 1,000 ML IVS ONE (11:50)
[2020-11-23] MEDS: BUPIVACAINE 0.25% W/EPI 50 ML VIAL INJ ONE ×2 (12:26)
[2020-11-23] MEDS ORDERED: HYDROcodone 5MG/APAP 325MG 1 EA TAB ONE (14:02)
[2020-11-23 14:08] VITALS: O2SAT 98
--- NOTE | 2020-11-23 14:11 | OP ---
DATE OF PROCEDURE: 11/23/20 PREOPERATIVE DIAGNOSIS: 1. Severe pain. 2. Left inguinal hernia, incarcerated. POSTOPERATIVE DIAGNOSIS: 1. Severe pain. 2. Left inguinal hernia, incarcerated. PROCEDURE: 1. Repair of left incarcerated inguinal hernia with mesh. 2. Ilioinguinal nerve block for postoperative pain control. SURGEON: Alejandro Vogel MD. ANESTHESIA: General and local. FINDINGS: Consistent with the subtle findings on the CT scan. There was a direct hernia with a small amount of fat coming through a defect with an overall weakness of the entire floor. COMPLICATIONS: None. ESTIMATED BLOOD LOSS: Minimal. IMPLANTS: Surgimesh was placed as an onlay. PLAN: Discharge. INDICATION: The patient has had two weeks of abdominal pain in the left groin after working out and feeling a pop. Initial physical examination did not reveal a hernia. The patient had gone home and upon twisting and bending, he felt another pop and could feel a bulge in the area of tenderness. A CT was done to rule out possible spigelian or different type of problem in the groin as the exam was not revealing and although not officially read on the CT scan, on post evaluation, there appeared to be a small amount of fat coming through, likely the internal ring. It was only about 2 cm. This was consistent with the patient's history and findings and no other abnormalities were seen in this area. He was consented for the procedure understanding a small hernia could be difficult to identify. PROCEDURE: The patient was brought to the Operating Suite in supine position. General anesthesia was induced. He was prepped and draped in sterile fashion. Ilioinguinal nerve block was performed with 3 cc of 0.5% Marcaine with epinephrine fanned out medial and superior to the ASIS. An incision was made based on anatomic landmarks. Subcutaneous tissues were taken down. The external oblique aponeurosis was identified. A small christine was made. It was opened along its fibers. The nerve was identified superiorly and dissected off the musculature and then spared. It was kept anterior. The cord was isolated. In the proximal cord, there was a small amount of fat coming through this. It was ligated, but not significant. As we dissected the cord, no indirect sac was identified. The floor was obviously weak. As we took the tissues away from this, this is when I did identify a small defect that had some fat coming through. We examined this and freed it up so it would not be incarcerated under the mesh, just by releasing some of the tissue. The entire floor was weakened. We used a 2-0 Prolene to close the conjoint tendon to Neto's and the shelving edge and a transition stitch medially. A small relaxing incision was performed superiorly to this. There was minimal tension to the area even after we closed it. We then used the Surgimesh without the internal plug, a Van type onlay. It was secured to the tubercle. It fit perfectly to the cord. The tails were wrapped and secured medial and lateral to the cord and then laid out under the external oblique. Still the mesh was above the nerve so the nerve could not be entrapped in the closure. Inferiorly, it was secured with interrupted 3-0 Vicryl sutures along the shelving edge and then superiorly some of the transversalis. There was no bleeding. More local anesthesia was placed. The external oblique was closed with a running 2-0 Vicryl suture. The subcutaneous fat and skin was closed in 2 additional layers with absorbable sutures. The patient tolerated the procedure. He was awakened and taken to Recovery to be discharged. #[id number] [facility]
[2020-11-23 14:40] VITALS: BP 113/68; TEMP 96.7
== END 2020-11-23 14:35 | disposition home or self-care (01) ==
LOC: AMB 11:00
PROVIDERS: ATTEND Surgery
DX: K40.30 Unilateral inguinal hernia, with obstruction, without gangrene, not specified as recurrent (principal); G89.18 Other acute postprocedural pain
CPT/HCPCS: 00830; 49507; 64425; J0690; J1100; J1885; J2250; J3475; J3490; J7120